=== PATIENT | female | born 1965 ===

== ENCOUNTER 2023-04-28 10:26 | Outpatient (AMB) | payer MEDICARE, MEDICAID, SELFPAY ==
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
[2023-04-28 10:34] VITALS: BP 128/62; BMI 41.7
== END 2023-04-28 11:26 | disposition home or self-care (01) ==
PROVIDERS: PCP Internal Medicine; Visit Provider Nurse Practitioner Family
DX: Z87.820 Personal history of traumatic brain injury (principal); R41.3 Other amnesia
CPT/HCPCS: 99204

== ENCOUNTER → 2023-04-28 10:26 | Outpatient (BNVA) | payer MEDICARE, MEDICAID, SELFPAY | PROVIDERS: PCP Internal Medicine; Visit Provider Nurse Practitioner Family | DX: R41.3 Other amnesia (principal); Z87.820 Personal history of traumatic brain injury | CPT/HCPCS: 99202 ==

== ENCOUNTER 2023-07-25 13:34 | Outpatient (AMB) | payer OTHER, MEDICAID, SELFPAY ==
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
[2023-07-25 13:55] VITALS: BP 122/64; PULSE 72; O2SAT 96; BMI 42.1
== END 2023-07-25 14:18 | disposition home or self-care (01) ==
PROVIDERS: PCP Internal Medicine; Visit Provider Nurse Practitioner Family
DX: Z87.820 Personal history of traumatic brain injury (principal); R41.3 Other amnesia
CPT/HCPCS: 99213

== ENCOUNTER → 2023-07-25 13:34 | Outpatient (BNVA) | payer OTHER, MEDICARE, MEDICAID, SELFPAY | PROVIDERS: PCP Internal Medicine; Visit Provider Nurse Practitioner Family ==

== ENCOUNTER 2024-07-14 10:06 | Inpatient (IN) | payer OTHER, SELFPAY ==
--- NOTE | ~2024-07-14 | XR_ITS ---
EXAMINATION: XR CHEST CLINICAL INFORMATION: congestion, cough, dyspnea COMPARISON: None available. TECHNIQUE: Frontal view of the chest was obtained. FINDINGS: No consolidation, pleural effusion or pneumothorax. Cardiomediastinal silhouette size is normal. S-shaped curvature of the thoracic spine. Degenerative changes in the acromioclavicular joints. Multilevel thoracic spondylosis. XR/XR chest 1V IMPRESSION: No acute airspace disease. Electronically signed by: Taj Terry MD 07/17/2024 12:49 PM EDT
[2024-07-14 10:10] VITALS: BP 125/83; BP 150/100; PULSE 76; PULSE 95; RESP 20; TEMP 36.2; O2SAT 94; O2SAT 95; BMI 34.3
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
--- NOTE | 2024-07-14 10:27 | PC.NURSE ---
patient's daughter called and wanted to leave number with staff Her name is Sonya [phone]
[2024-07-14 10:35] VITALS: RESP 20
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
--- NOTE | 2024-07-14 10:48 | MHC.EDTECH ---
pt changed over into hospital attire, belongings checked by security, list created and placed in chart, belongings locked in locker 5, pt oriented to room, provided with water, tv turned on, and given warm blanket. resting at this time pending CARE team consult
[2024-07-14 10:49] LABS: MANUAL DIFF FLAG NO
[2024-07-14 10:50] LABS: Basophils Percent Auto 0.3 % (0-2); Eosinophils Absolute Auto 0.6 X10*3/uL (0.0-0.4); Eosinophils Percent Auto 8.4 % (0-4); Hematocrit 43.2 % (37.0-47.0); Hemoglobin 14.7 g/dl (12.0-16.0); Imm Gran Abs Auto 0.02 X10*3/uL (0.00-0.03); Imm Gran Pct Auto 0.3 % (0.0-0.4); Lymphocytes Absolute Auto 1.9 X10*3/uL (1.2-4.9); Lymphocytes Percent Auto 26.5 % (20-40); Mean Corpuscular Hemoglobin 31.6 pg (27.0-33.0); Mean Corpuscular Volume 92.9 fL (80.0-98.0); Mean Platelet Volume 10.4 fL (9.4-12.3); Monocytes Absolute Auto 0.3 X10*3/uL (0.1-1.2); Monocytes Percent Auto 4.5 % (2-11); Neutrophils Absolute Auto 4.2 x10*3/uL (2.0-8.3); Platelet Count 203 X10*3/uL (160-400); Red Blood Count 4.65 X10*6/uL (4.20-5.50); Red Cell Distribution Width 12.8 % (11.0-16.0); White Blood Count 7.1 X10*3/uL (4.8-10.8)
[2024-07-14 10:51] LABS: Appearance Urine Turbid; Color Urine Yellow; Glucose Urine UA Negative (Negative); Leukocyte Esterase Urine Large (3+) (Negative); Nitrite Urine Negative (Negative); PH 5.5 (5.0-9.0); UMIC TRIGGER UACC YES; Urine Blood Trace (Negative); Urine Ketones Negative (Negative); Urine Protein Trace mg/dL (Neg-Trace)
[2024-07-14 11:07] LABS: Bacteria Urine 4+ (None Seen); Hyaline Casts Urine 0-2 /LPF (0-2); Squamous Epithelial Cell Urine >20 /HPF (0-2); UACC Culture Trigger YES
[2024-07-14 11:08] LABS: Alanine Aminotransferase 41 U/L (0-31); Alkaline Phosphatase 41 U/L (39-117); Anion Gap 12 (12-20); Aspartate Amino Transferase 31 U/L (5-31); Bilirubin Total 0.6 mg/dL (0.0-1.0); Blood Urea Nitrogen 13 mg/dL (9-16); Calcium 9.3 mg/dL (8.4-10.2); Carbon Dioxide 23 mmol/L (22-29); Chloride 111 mmol/L (96-108); Creatinine Clr Calc Pharmacy 101.3; Estimated Glomerular Filt Rate > 60; Ethanol < 10 mg/dL; Glucose Random 87 mg/dL (60-115); Potassium 3.7 mmol/L (3.3-5.1); Sodium 142 mmol/L (135-145); Total Protein 7.3 g/dL (6.5-8.0)
[2024-07-14 11:25] LABS: Amphetamine Screen Urine Not Detected (Not Detect); Barbiturates, Urine Not Detected (Not Detect); Benzodiazepines Screen Urine Not Detected (Not Detect); Buprenorphine Scr Not Detected (Not Detect); Cannabinoid Screen Urine Not Detected (Not Detect); Cocaine Screen Urine Not Detected (Not Detect); Fentanyl, urine Not Detected (Not Detect); Methadone Screen, Urine Not Detected (Not Detect); Opiate Screen Urine Not Detected (Not Detect); Oxycodone Screen Urine Not Detected (Not Detect); Phencyclidine Screen Urine Not Detected (Not Detect)
--- NOTE | 2024-07-14 17:48 | MHC.CARE ---
Patient evaluated by the CARE Team, disposition determined to be inpatient psychiatric treatment. Provider Karma Lozano NP updated
[2024-07-14 21:02] VITALS: BP 110/70; PULSE 70; RESP 16; TEMP 36.8; O2SAT 97
[2024-07-14 23:14] VITALS: PULSE 70; RESP 20; O2SAT 98
[2024-07-14] MEDS: Albuterol Sulfate 90 MCG 8 GM INHALER 1 PUFF INHALE (23:20)
--- NOTE | 2024-07-14 23:22 | PC.NURSE ---
Pt moved to RM 18 from BH 5 for CPaP. A&Ox3 skin pwd respirations even unlabored, offers no complaints. RT to bedside for inhaler and CPaP admin. Pt observer at bedside for safety, safety maintained will continue to monitor.
[2024-07-14 23:24] VITALS: PULSE 58; RESP 20; O2SAT 98
--- NOTE | 2024-07-15 04:55 | PC.NURSE ---
Pt resting in bed NAD, pt observer remains at bedside for safety, safety maintained, IPBS continues.
--- NOTE | 2024-07-15 07:14 | PC.NURSE ---
Assumed care of patient at 0645, patient appears to be in no apparent distress this am, calm and cooperative, eating breakfast, offering no complaints to this RN. Continue plan of care for IPLOC
[2024-07-15 07:20] VITALS: BP 128/80; PULSE 90; RESP 16; TEMP 36.4; O2SAT 99
--- NOTE | 2024-07-15 08:02 | PHA.MEDREC ---
Pharmacy Consult ? Medication Reconciliation Pharmacy has completed the medication reconciliation. Patient confused and states she has no idea what she takes. She was able to name gabapentin and aspirin and provide details of the look of some of her medications. She said her Navi helps her but when I tried to call it rang endlessly with no voicemail to leave a message. Utilized claim history.
[2024-07-15] MEDS: Venlafaxine HCl ER 37.5 MG CAP.ER.24H PO (09:19)
[2024-07-15] MEDS: LORazepam 1 MG TABLET PO (09:19)
[2024-07-15] MEDS: Aspirin Enteric Coated 81 MG TABLET.DR PO (09:19)
[2024-07-15 09:50] LABS: Influenza A PCR NEGATIVE (Negative); Influenza B PCR NEGATIVE (Negative); Resp Syncy Virus RNA Qual PCR NEGATIVE (Negative); SARS COV2 PCR INHOUSE NEGATIVE (Negative)
[2024-07-15] MEDS: Atorvastatin Calcium 20 MG TABLET PO (09:56)
[2024-07-15] MEDS: Gabapentin 100 MG CAPSULE PO (09:56)
[2024-07-15] MEDS: Levothyroxine Sodium 88 MCG TABLET PO (09:56)
[2024-07-15] MEDS: Albuterol Sulfate 90 MCG 8 GM INHALER 1 PUFF INHALE ×2 (09:56→21:26)
--- NOTE | 2024-07-15 10:17 | PC.NURSE ---
awaiting Effexor from pharmacy
[2024-07-15] MEDS: OLANZapine 5 MG TABLET PO (11:04)
[2024-07-15] MEDS: Venlafaxine HCL 25 MG TABLET 75 MG PO (11:24)
[2024-07-15 18:41] VITALS: BP 101/69; PULSE 70; RESP 16; TEMP 36.2; O2SAT 97
[2024-07-15] MEDS: Gabapentin 300 MG CAPSULE PO (21:23)
[2024-07-16 01:58] VITALS: PULSE 120; O2SAT 96
[2024-07-16] MEDS: Albuterol Sulfate 90 MCG 8 GM INHALER 4 PUFF INHALE (02:10)
[2024-07-16] MEDS: Benzonatate 100 MG CAPSULE 200 MG PO (02:29)
--- NOTE | 2024-07-16 06:32 | PC.NURSE ---
Pt slept for most of the night. Had one episode where pt woke up and reported sob and a constant cough. Vitals remained stable. Sat 96% RA. MD made aware. Pt medicated as per JUL and pt reported relief. Cough subsided and pt went back to sleep with no issues/concerns. No apparent distress noted. Monitoring is ongoing.
--- NOTE | 2024-07-16 07:49 | ECG_ITS ---
Test Reason : r/o prolonged qt Blood Pressure : */* mmHG Vent. Rate : 83 BPM Atrial Rate : 83 BPM P-R Int : 158 ms QRS Dur : 94 ms QT Int : 392 ms P-R-T Axes : 45 24 59 degrees QTcB Int : 460 ms Sinus rhythm with occasional Premature ventricular complexes Otherwise normal ECG No previous ECGs available Referred By: Guillermo Ross Electronically Signed By: ELINA MARTINEZ
[2024-07-16 09:32] VITALS: BP 111/76; PULSE 94; RESP 16; TEMP 36.4; O2SAT 97
[2024-07-16] MEDS: Levothyroxine Sodium 88 MCG TABLET PO (09:52)
[2024-07-16] MEDS: Atorvastatin Calcium 20 MG TABLET PO (09:52)
[2024-07-16] MEDS: Gabapentin 100 MG CAPSULE PO (09:52)
[2024-07-16] MEDS: Albuterol Sulfate 90 MCG 8 GM INHALER 1 PUFF INHALE ×3 (09:52→21:00)
[2024-07-16] MEDS: Venlafaxine HCl ER 37.5 MG CAP.ER.24H PO (09:52)
[2024-07-16] MEDS: Aspirin Enteric Coated 81 MG TABLET.DR PO (09:53)
[2024-07-16] MEDS: Venlafaxine HCL 25 MG TABLET 75 MG PO (10:51)
--- NOTE | 2024-07-16 11:20 | PHA.MEDREC ---
Pharmacy Consult ? Medication Reconciliation Pharmacy has reviewed the medication reconciliation completed by nursing.
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
[2024-07-16 19:58] VITALS: BP 116/67; PULSE 89; RESP 16; TEMP 36.7; O2SAT 96
[2024-07-16] MEDS: Gabapentin 300 MG CAPSULE PO (21:01)
[2024-07-16] MEDS: risperiDONE 1 MG TABLET PO (21:01)
[2024-07-16] MEDS: Divalproex Sodium ER 250 MG TAB.ER.24H 750 MG PO (21:01)
[2024-07-16] MEDS: traZODone HCL 50 MG TABLET PO (21:05)
[2024-07-16 22:50] VITALS: PULSE 74; RESP 18; O2SAT 97
[2024-07-17] MEDS: hydrOXYzine HCL 25 MG TABLET PO (04:41)
[2024-07-17] MEDS: Albuterol Sulfate 90 MCG 8 GM INHALER 1 PUFF INHALE ×5 (05:05→19:57)
--- NOTE | 2024-07-17 05:14 | PC.NURSE ---
Saira awoke at 0445 with some shortness of breath. patient was given an extra dose of her albuterol inhaler with permission from Dr. Sequeira.
[2024-07-17] MEDS: Levothyroxine Sodium 88 MCG TABLET PO (06:37)
[2024-07-17 08:30] VITALS: BP 109/65; PULSE 63; RESP 16; TEMP 36.4; O2SAT 99
[2024-07-17 09:03] LABS: Cholesterol 122 mg/dL (<200); HDL Cholesterol 43 mg/dL (>40); LDL Cholesterol Calculated 52 mg/dL (<100); Triglycerides 138 mg/dL (<150)
[2024-07-17] MEDS: Venlafaxine HCL 25 MG TABLET 75 MG PO (09:08)
[2024-07-17] MEDS: Venlafaxine HCl ER 37.5 MG CAP.ER.24H PO (09:08)
[2024-07-17] MEDS: Gabapentin 100 MG CAPSULE PO (09:08)
[2024-07-17] MEDS: Aspirin Enteric Coated 81 MG TABLET.DR PO (09:08)
[2024-07-17] MEDS: Atorvastatin Calcium 20 MG TABLET PO (09:09)
[2024-07-17 09:17] LABS: Estimated Average Glucose 103 mg/dL; Hemoglobin A1C 132.2168 umol/L; Hemoglobin A1c % 5.2 % (<6.0)
[2024-07-17 09:21] LABS: Free T4 (Free Thyroxine) 0.99 ng/dL (0.71-1.85); Thyroid Stimulating Hormone 2.13 uIU/mL (0.32-4.0)
[2024-07-17 09:30] LABS: Folate 5.2 ng/mL (> or = 4.0); Vitamin B12 248 pg/mL (200-900)
--- NOTE | 2024-07-17 13:08 | PC.NURSE ---
Pt was administered a MOCA on 07/17/2024. She scored a 3 out of 30 indicating severe cognitive impairment. Provider Dr. Sequeira was notified.
--- NOTE | 2024-07-17 14:08 | P.PNPSI_ITS ---
Subjective Subjective Date of Service: 07/17/24 Reason For Visit: Agitation Interim History: asking for discharge, states she wants to be with her grandchildren. pulm complaints - productive cough, dyspnea, very poor sleep due to respiratory Sx. reporting such complaints on the way in as well. suggested she sign 3-day notice, which she did do. per staff, unable to identify the month or year. pulm complaints. Mental Status Exam Mental Status Exam Narrative: dressed in hospital bibiana, disheveled. no PMA/PMR. cooperative. speech incr amount and rate, nml loudness and prosody, decr latency. thoughts digressive but linear and logical for the most part in response to questions. affect constricted, hyper-intense, non-labile. mood not assessed. no SI/HI/AVH expressed. Diagnostics Vital Signs (24Hr): Vital Signs - 24 hr 07/16/24 19:58 07/16/24 22:50 07/17/24 08:30 Temperature 98.1 F 97.6 F Pulse Rate 89 63 Respiratory Rate 16 18 16 Blood Pressure 116/67 109/65 Pulse Oximetry 96 99 Oxygen Delivery Method Room Air Room Air BMI result Body Mass Index 34.3 Labs 07/14/24 10:41 07/14/24 10:41 Labs: Laboratory Results - last 48 hr 07/17/24 08:14 Estimat Average Glucose 103 Hemoglobin A1c % 5.2 Triglycerides 138 Cholesterol 122 LDL Cholesterol, Calc 52 HDL Cholesterol 43 Vitamin B12 248 Folate 5.2 TSH 2.13 Free T4 0.99 Imaging Radiology Impressions: ITS Impressions Chest X-Ray 07/17/24 12:25 IMPRESSION: No acute airspace disease. Electronically signed by: Taj Terry MD 07/17/2024 12:49 PM EDT RP Medications Medications Current Medications Acetaminophen (Acetaminophen 325 Mg Tablet) 650 mg PO Q6H PRN PRN Reason: Headache/Pain, Scale 1-10 Al Hydroxide/Mg Hydroxide (Magnesium Hydrox/Alum Hydrox 30 Ml Oral.Susp) 30 ml PO Q6H PRN PRN Reason: Heartburn/Nausea Albuterol Sulfate (Albuterol Sulfate 90 Mcg 8 Gm Inhaler) 1 puff INHALE QID [facility] Last Admin: 07/17/24 13:44 Dose: 1 puff Aspirin (Aspirin Enteric Coated 81 Mg Tablet.) 81 mg PO DAILY [facility] Last Admin: 07/17/24 09:08 Dose: 81 mg Atorvastatin Calcium (Atorvastatin Calcium 20 Mg Tablet) 20 mg PO DAILY [facility] Last Admin: 07/17/24 09:09 Dose: 20 mg Benzonatate (Benzonatate 100 Mg Capsule) 200 mg PO ONCE PRN PRN Reason: Cough Last Admin: 07/16/24 02:29 Dose: 200 mg Divalproex Sodium (Divalproex Sodium Er 250 Mg Tab.Er.24h) 750 mg PO BEDTIME [facility] Last Admin: 07/16/24 21:01 Dose: 750 mg Gabapentin (Gabapentin 300 Mg Capsule) 300 mg PO BEDTIME [facility] Last Admin: 07/16/24 21:01 Dose: 300 mg Gabapentin (Gabapentin 100 Mg Capsule) 100 mg PO DAILY [facility] Last Admin: 07/17/24 09:08 Dose: 100 mg Hydroxyzine HCl (Hydroxyzine Hcl 25 Mg Tablet) 25 mg PO Q6H PRN PRN Reason: mild anxiety Last Admin: 07/17/24 04:41 Dose: 25 mg Levothyroxine Sodium (Levothyroxine Sodium 88 Mcg Tablet) 88 mcg PO DAILY@0600 [facility] Last Admin: 07/17/24 06:37 Dose: 88 mcg Loratadine (Loratadine 10 Mg Tablet) 10 mg PO DAILY PRN PRN Reason: Allergy Symptoms Magnesium Hydroxide (Milk Of Magnesia 30 Ml Oral.Susp) 30 ml PO DAILY PRN PRN Reason: Constipation Nicotine Polacrilex (Nicotine Polacrilex 2 Mg Gum) 4 mg BUCCAL Q2H PRN PRN Reason: Nicotine Cravings Omeprazole (Omeprazole 40 Mg Capsule.) 40 mg PO DAILY@0630 PRN PRN Reason: Heartburn Risperidone (Risperidone 1 Mg Tablet) 1 mg PO BEDTIME [facility] Last Admin: 07/16/24 21:01 Dose: 1 mg Trazodone HCl (Trazodone Hcl 50 Mg Tablet) 50 mg PO BEDTIME MRX1 PRN PRN Reason: Insomnia Last Admin: 07/16/24 21:05 Dose: 50 mg Venlafaxine HCl (Venlafaxine Hcl Er 37.5 Mg Cap.Er.24h) 37.5 mg PO DAILY [facility] Last Admin: 07/17/24 09:08 Dose: 37.5 mg Venlafaxine HCl (Venlafaxine Hcl 25 Mg Tablet) 75 mg PO DAILY [facility] Last Admin: 07/17/24 09:08 Dose: 75 mg Allergies Allergies Allergy/AdvReac Type Severity Reaction Status Date / Time No Known Allergies Allergy Verified 07/14/24 10:21 Assessment & Plan Assessment & Plan (1) Hx of multiple concussions: Status: Acute Code(s): Z87.820 - Personal history of traumatic brain injury (2) Memory loss or impairment: Status: Acute Code(s): R41.3 - Other amnesia (3) Unspecified mood [affective] disorder: Status: Acute Code(s): F39 - Unspecified mood [affective] disorder Plan 07/16: start risperidone and VPA at HS for mood lability s/p possible TBI. MoCA and ACLS for cognitive and adaptive function assessment. 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 07/17: 3-day signed. pulm complaints, substantial - pulm consult. no side effects from meds last night, continue psych regimen CXR today WNL. MoCA 08/05, ACLS 3.4 (indicating need to 24H care). Reason for continued inpatient stay Substantial Risk for: harm to others and inability to function Time Spent With Patient Time: Total time managing care of this patient today __35__ minutes.
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
[2024-07-17 20:00] VITALS: BP 139/78; PULSE 104; RESP 18; TEMP 36.6; O2SAT 94
[2024-07-17] MEDS: Gabapentin 300 MG CAPSULE PO (22:11)
[2024-07-17] MEDS: Divalproex Sodium ER 250 MG TAB.ER.24H 750 MG PO (22:11)
[2024-07-17] MEDS: risperiDONE 1 MG TABLET PO (22:11)
[2024-07-17] MEDS: guaiFENesin 100 MG/5 ML 5 ML LIQUID PO (22:11)
[2024-07-18] MEDS: Levothyroxine Sodium 88 MCG TABLET PO (06:31)
[2024-07-18] MEDS: guaiFENesin 100 MG/5 ML 5 ML LIQUID PO ×2 (06:38→18:25)
[2024-07-18] MEDS: Albuterol Sulfate 90 MCG 8 GM INHALER 1 PUFF INHALE ×2 (07:03→18:25)
[2024-07-18 07:25] VITALS: BP 124/69; PULSE 72; RESP 16; TEMP 36.4; O2SAT 96
[2024-07-18] MEDS: Venlafaxine HCL 25 MG TABLET 75 MG PO (08:07)
[2024-07-18] MEDS: Atorvastatin Calcium 20 MG TABLET PO (08:07)
[2024-07-18] MEDS: Gabapentin 100 MG CAPSULE PO (08:08)
[2024-07-18] MEDS: Aspirin Enteric Coated 81 MG TABLET.DR PO (08:08)
[2024-07-18] MEDS: Venlafaxine HCl ER 37.5 MG CAP.ER.24H PO (08:08)
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
--- NOTE | 2024-07-18 15:59 | PC.NURSE ---
ACLS score: pt scored a 3.4 on the [place] Cognitive Level Screen indicating the need for 54% cognitive assistance, recommending 24-hour supervision. Pt may have very little awareness of cause and effect, end product, or goal. Attention span is max 30 minutes and actions are unpredictable. Moderate assistance is needed for simple tasks. Often perseverative, unsafe, erratic, impulsive behaviors.
[2024-07-18 19:40] VITALS: BP 125/60; PULSE 101; RESP 16; TEMP 36.4; O2SAT 96
[2024-07-18] MEDS: Gabapentin 300 MG CAPSULE PO (20:15)
[2024-07-18] MEDS: Divalproex Sodium ER 500 MG TAB.ER.24H PO (20:15)
[2024-07-18] MEDS: risperiDONE 1 MG TABLET PO (20:16)
[2024-07-19] MEDS: Levothyroxine Sodium 88 MCG TABLET PO (06:00)
[2024-07-19] MEDS: guaiFENesin 100 MG/5 ML 5 ML LIQUID PO ×2 (06:06→14:32)
[2024-07-19] MEDS: Albuterol Sulfate 90 MCG 8 GM INHALER 1 PUFF INHALE (06:21)
[2024-07-19 07:55] VITALS: BP 105/73; PULSE 104; RESP 12; TEMP 36.4; O2SAT 96
[2024-07-19] MEDS: Aspirin Enteric Coated 81 MG TABLET.DR PO (08:31)
[2024-07-19] MEDS: Venlafaxine HCl ER 37.5 MG CAP.ER.24H PO (08:31)
[2024-07-19] MEDS: Venlafaxine HCL 25 MG TABLET 75 MG PO (08:31)
[2024-07-19] MEDS: risperiDONE 1 MG TABLET PO ×2 (08:31→21:45)
[2024-07-19] MEDS: Gabapentin 100 MG CAPSULE PO (08:31)
[2024-07-19] MEDS: Divalproex Sodium ER 500 MG TAB.ER.24H PO (08:31)
[2024-07-19] MEDS: Atorvastatin Calcium 20 MG TABLET PO (08:31)
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
[2024-07-19 20:00] VITALS: BP 124/77; PULSE 86; RESP 18; TEMP 36.3; O2SAT 97
[2024-07-19] MEDS: Divalproex Sodium ER 500 MG TAB.ER.24H 1000 MG PO (21:44)
[2024-07-19] MEDS: Gabapentin 300 MG CAPSULE PO (21:45)
[2024-07-20] MEDS: Levothyroxine Sodium 88 MCG TABLET PO (05:46)
[2024-07-20 07:20] VITALS: BP 126/76; PULSE 90; RESP 12; TEMP 36.4; O2SAT 95
[2024-07-20] MEDS: risperiDONE 0.5 MG TABLET PO (08:30)
[2024-07-20] MEDS: Gabapentin 100 MG CAPSULE PO (08:30)
[2024-07-20] MEDS: Atorvastatin Calcium 20 MG TABLET PO (08:31)
[2024-07-20] MEDS: Venlafaxine HCL 25 MG TABLET 75 MG PO (08:31)
[2024-07-20] MEDS: Venlafaxine HCl ER 37.5 MG CAP.ER.24H PO (08:31)
[2024-07-20] MEDS: Aspirin Enteric Coated 81 MG TABLET.DR PO (08:31)
[2024-07-20] MEDS: Tiotropium Bromide 2.5 mcg 1 PUFF/2.5 MCG MIST.INHAL 2 PUFF INHALE (08:32)
== END 2024-07-20 13:50 | disposition home or self-care (01) | DRG 885 ==
LOC: HO.ED 07-15 05:54 → HO.PADLT16 07-16 10:53
PROVIDERS: Nurse Practitioner Family; Admitting Provider Psychiatry & Neurology Psychiatry; Emergency Provider Emergency Medicine; Visit Provider Psychiatry & Neurology Psychiatry
DX: F39 Unspecified mood [affective] disorder (principal); R45.851 Suicidal ideations; E03.9 Hypothyroidism, unspecified; J44.9 Chronic obstructive pulmonary disease, unspecified; Z20.822 Contact with and (suspected) exposure to COVID-19; Z87.820 Personal history of traumatic brain injury; Z87.891 Personal history of nicotine dependence; Z79.82 Long term (current) use of aspirin; Z79.890 Hormone replacement therapy; Z79.899 Other long term (current) drug therapy
CPT/HCPCS: 0241U; 36415; 71045; 80053; 80061; 80307; 81001; 82607; 82746; 83036; 84439; 84443; 85025; 87086; 93005; 94640; 94660; 99285; S9485

== ENCOUNTER → 2024-07-16 07:49 | Outpatient (BNV) | payer MEDICARE, SELFPAY | PROVIDERS: Admitting Provider Psychiatry & Neurology Psychiatry; Emergency Provider Emergency Medicine; Visit Provider Internal Medicine | DX: I49.3 Ventricular premature depolarization (principal) | CPT/HCPCS: 93010 ==

== ENCOUNTER 2024-07-16 10:53 | Outpatient (BNV) | payer OTHER, SELFPAY | END 2024-07-17 12:25 | PROVIDERS: Admitting Provider Psychiatry & Neurology Psychiatry; Emergency Provider Emergency Medicine; Visit Provider Radiology Diagnostic Radiology | DX: R07.89 Other chest pain (principal); R05.9 Cough, unspecified; R06.00 Dyspnea, unspecified | CPT/HCPCS: 71045 ==

== ENCOUNTER → 2024-07-16 10:53 | Outpatient (BNV) | payer OTHER, SELFPAY | PROVIDERS: Admitting Provider Psychiatry & Neurology Psychiatry; Emergency Provider Emergency Medicine; Visit Provider Psychiatry & Neurology Psychiatry | DX: F39 Unspecified mood [affective] disorder (principal); R41.3 Other amnesia; Z87.820 Personal history of traumatic brain injury | CPT/HCPCS: 90792 ==

== ENCOUNTER → 2024-07-16 10:53 | Outpatient (BNV) | payer OTHER, SELFPAY | PROVIDERS: Admitting Provider Psychiatry & Neurology Psychiatry; Emergency Provider Emergency Medicine; Visit Provider Internal Medicine Pulmonary Disease | DX: J44.9 Chronic obstructive pulmonary disease, unspecified (principal) | CPT/HCPCS: 99221 ==